=== PATIENT | female | born 1965 | race Caucasian/White ===

== ENCOUNTER → 2017-06-30 | Outpatient (CLI) | payer BC ==
--- NOTE | 2017-06-30 12:11 | EST ---
EXERCISE STRESS DATE OF SERVICE: 06/30/2017 AGE: 52 SEX: Female HT: 66 WT: 228 PROTOCOL: Obed STAGE: III DURATION OF EXERCISE: 9 minutes HEART RATE REST: 95 BLOOD PRESSURE REST: 153/95 MAXIMUM HEART RATE ACHIEVED: 162 MAXIMUM BLOOD PRESSURE: 207/94 85% MPHR: 142 100% MPHR: 167 METS: 10.5 INDICATIONS: Chest pain. CLINICAL INFORMATION: Patient was exercised for total duration of 9 minutes. The peak heart rate of 162 was achieved. Maximum blood pressure of 207/94 mmHg was noted. The resting EKG shows normal sinus rhythm with normal [place] interval and QRS duration and normal ST-T waves. No ST-segment depression suggestive of ischemia is noted. Occasional PVCs were noted. FINAL IMPRESSION: 1. This exercise test is not suggestive of ischemia. 2. Patient's exercise tolerance is normal. 3. The patient did not complain of any chest pain during the test. 4. Occasional PVCs were noted. MMODL / IJN: [id number] /
== END ==
LOC: RADNMMAIN 10:30
PROVIDERS: ATTEND Family Medicine
DX: F43.9 Reaction to severe stress, unspecified (principal); R07.9 Chest pain, unspecified
CPT/HCPCS: 93017

== ENCOUNTER → 2017-09-01 | Outpatient (CLI) | payer BC ==
--- NOTE | 2017-09-05 08:38 | MM ---
Reason for exam: screening (asymptomatic). Last mammogram was performed 1 year and 2 months ago. History: Family history of premenopausal breast cancer in aunt at age 24 and breast cancer in paternal grandmother. Took hormonal contraceptives for 3 years beginning at age 18. Physical Findings: A clinical breast exam by your physician is recommended on an annual basis and results should be correlated with mammographic findings. MG 3D Screening Mammo W/Cad Bilateral CC and MLO view(s) were taken. Prior study comparison: June 24, 2016, right breast MG diagnostic mammo RT w CAD. December 18, 2015, bilateral MG screening mammo w CAD. July 28, 2014, bilateral MG screening mammo w CAD. The breast tissue is heterogeneously dense. This may lower the sensitivity of mammography. A 1.1cm nodular asymmetry medial left breast seen on 3D images. ASSESSMENT: Incomplete: need additional imaging evaluation, BI-RAD 0 RECOMMENDATION: Special view mammogram of the left breast. If lesion persists on supplemental views, image directed ultrasound is recommended. [facility] will attempt to contact patient to return for supplemental views and ultrasound if indicated.
== END | disposition home or self-care (01) ==
LOC: RADMAMWWP 09:15
PROVIDERS: ATTEND Obstetrics & Gynecology
DX: Z12.31 Encounter for screening mammogram for malignant neoplasm of breast (principal)
CPT/HCPCS: 77063; 77067

== ENCOUNTER → 2017-09-08 | Outpatient (CLI) | payer BC ==
--- NOTE | 2017-09-08 09:43 | USB ---
Reason for exam: additional evaluation requested from abnormal screening. History: Family history of premenopausal breast cancer in aunt at age 24. Took hormonal contraceptives for 3 years beginning at age 18. Physical Findings: Nurse did not find any significant physical abnormalities on exam. US Breast Workup Limited LT Left breast ultrasound demonstrates a 8 x 4 x 4mm oval, cystic lesion at 11 o'clock 6.4cm from nipple, simple appearing cyst. These results were verbally communicated with the patient and result sheet given to the patient on 09/08/17. ASSESSMENT: Benign, BI-RAD 2 RECOMMENDATION: Return to routine screening mammogram schedule for both breasts.
== END | disposition home or self-care (01) ==
LOC: RADMAMWWP 07:03
PROVIDERS: ATTEND Obstetrics & Gynecology
DX: R92.8 Other abnormal and inconclusive findings on diagnostic imaging of breast (principal)